=== PATIENT | female | born 2000 | race African-American/Black ===

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

== ENCOUNTER 2022-11-01 12:54 | Emergency (ER) | payer OTHER ==
[~2022-11-01] VITALS: Ht 177.8 cm; Wt 60.0 kg
[2022-11-01] MEDS ORDERED: KETOROLAC 60MG/2ML VIAL IM ONE (13:15)
[2022-11-01] MEDS ORDERED: CYCLOBENZAPRINE 10MG TABLET PO SCH ×2 (13:15→15:45)
[2022-11-01] MEDS ORDERED: KETOROLAC 15MG/ML VIAL IM NR (15:45)
[2022-11-01] MEDS ORDERED: KETOROLAC 60MG/2ML VIAL IM NR (15:45)
[2022-11-01 16:04] VITALS: BP 140/90
== END 2022-11-01 16:31 | disposition home or self-care (01) ==
LOC: ER 12:54
DX: S16.1XXA Strain of muscle, fascia and tendon at neck level, initial encounter (principal); J45.909 Unspecified asthma, uncomplicated; V49.9XXA Car occupant (driver) (passenger) injured in unspecified traffic accident, initial encounter; Y93.89 Activity, other specified; Y92.89 Other specified places as the place of occurrence of the external cause; Y99.8 Other external cause status
CPT/HCPCS: 96372; 99283; J1885